=== PATIENT | male | born 1980 | race Two or more races ===

== ENCOUNTER 2024-09-04 16:20 | Emergency (ER) | payer SELFPAY ==
[2024-09-04 16:27] VITALS: BP 121/83; PULSE 83; RESP 16; TEMP 36.7; O2SAT 97; BMI 25.0
--- NOTE | 2024-09-04 16:35 | XR_ITS ---
Examination: CT brain head without contrast. 2-D sagittal coronal reconstructions Date and time of exam:September 04, 2024, 1654 hrs. Indications: Patient fell today, injury to the head, head pain CTDI: vol (mGy):47.5 DLP: (mGycm):978 Technique: Multiple CT axial sections of the brain have been obtained, 5 mm slice thickness. Contrast has not been administered. 2-D sagittal, coronal reconstructions have been obtained Low dose protocols were performed. One or more of the following dose reduction techniques were used; automated exposure control, adjustment of the mA and/or KV according to patient size, use of iterative reconstruction technique. Findings: No significant ventricular enlargement. Intra-axial or extra-axial hemorrhage density is not seen. No mass effect or midline shift Basal cisterns are not remarkable. Fourth ventricle is midline. Cranial vault intact. Impression: Negative for acute hemorrhage, mass effect or midline shift
--- NOTE | 2024-09-04 16:35 | XR_ITS ---
Examination: CT chest, without intravenous contrast. CT abdomen, without intravenous contrast. CT pelvis, without intravenous contrast. 2-D sagittal and coronal reconstructions. 3-D reconstructions. Date and time of exam:September 04, 2024 at 1658 hrs. Indications: Patient fell today with injury to the chest and abdomen, chest pain abdomen pain back pain CTDI vol (mgy) 6.61 DLP (MGycm)169 Technique: Multiple CT images, 3.0 mm slice thickness, obtained chest, abdomen, pelvis, with the high-resolution 64 slice scanner.. Sagittal and coronal 2-D reconstructions are obtained. 3-D reconstructions Low dose protocols were performed. One or more of the following dose reduction techniques were used; automated exposure control, adjustment of the mA and/or KV according to patient size, use of iterative reconstruction technique. Findings: Thoracic aorta pulmonary arteries intact. No hemopericardium No pneumothorax pulmonary contusion or hemothorax The manubrium, the body the sternum, thoracic vertebral bodies appear intact Ribs appear intact No liver splenic or renal laceration, no perinephric hematoma Aorta is intact Subcentimeter periaortic lymph nodes No free blood in the abdomen or pelvis Negative for pneumoperitoneum Absent appendix No bowel obstruction Urinary bladder intact with minimal urinary bladder wall thickening No significant prostatomegaly Iliac bones bones of the pelvis intact Impression: Thoracic aorta pulmonary arteries intact No hemopericardium, pneumothorax, pulmonary contusion or hemothorax No abdominal parenchymal laceration Abdominal aorta intact No free blood in the abdomen or pelvis Osseous structures including vertebral bodies appear intact
--- NOTE | 2024-09-04 16:35 | XR_ITS ---
Examination: CT cervical spine without contrast 2-D sagittal reconstructions 2-D coronal reconstructions 3-D reconstructions. Exam date and time:August 1654 hrs. Indications: Patient fell today with injury to the neck, neck pain CTDI:vol (mGy) 7.47 DLP: (mGycm) 157 Technique: Multiple 2 mm axial sections of the cervical spine have been obtained. The coronal and sagittal reconstructions have been obtained. 3-D reconstructions have been obtained. Low dose protocols were performed. One or more of the following dose reduction techniques were used; automated exposure control, adjustment of the mA and/or KV according to patient size, use of iterative reconstruction technique. Findings: Axial sections demonstrate intact base of the skull. C1 exhibit satisfactory relationship to the odontoid. No acute cervical vertebral body fracture seen. Alignment posterior spinous processes satisfactory. Impression: No acute cervical fracture.
--- NOTE | 2024-09-04 16:35 | PD.EDRME ---
Rapid Medical Screening Exam [facility] Arrival date/time: 09/04/24 16:20 44-year-old male with no known medical history presents to the emergency room with a chief complaint of headache, thoracic back pain, and neck pain x 2 hours. Patient states he was picking oranges and fell off a 10 foot ladder. He believes the fall was over 10 feet as he was on one of the final steps of the ladder when he fell. Patient states he fell backwards and hit his head and back while caring a sack of oranges. I have greeted and performed a focused initial assessment of this patient. A comprehensive ED assessment and evaluation of the patient, analysis of all test results, and completion of the medical decision making process will be conducted by additional ED providers. Chief Complaint: Fall Vital signs: Vital Signs Temperature 98.1 F 09/04/24 16:27 Pulse Rate 83 09/04/24 16:27 Respiratory Rate 16 09/04/24 16:27 Blood Pressure 121/83 09/04/24 16:27 Pulse Oximetry (%) 97 09/04/24 16:27 Oxygen Delivery Method Room Air 09/04/24 16:27 Vital signs reviewed by provider: Yes
--- NOTE | 2024-09-04 17:43 | PC.NURSE ---
MADE CONTACT WITH PATIENT AT THIS TIME. CERVICAL COLLAR APPLIED AT THIS TIME DUE TO HEAD AND NECK PAIN SECONDARY TO FALL FROM LATTER TODAY. ETRE ARIAS MADE AWARE.
--- NOTE | 2024-09-04 17:49 | XR_ITS ---
Examination: Bilateral hips, AP pelvis, 5 views Technique: AP, lateral views both hips, AP pelvis, 5 views Exam date and time: September 04, 2024 at 1717 hrs. Indications: Patient fell today with injury to both hips, bilateral hip pain. Findings: No right or left hip fracture or dislocation Bones of the pelvis intact Impression: No hip or pelvic fractures
--- NOTE | 2024-09-04 17:53 | XR_ITS ---
EXAMINATION: Ankle, left 3 views . Technique: Ankle AP, oblique, lateral 3 views Date and time of exam: September 04, 2024 at 1731 hrs. Indications: Injury to the ankle today, ankle pain. Findings: No acute fracture No dislocation No foreign body Impression: No acute fracture
--- NOTE | 2024-09-04 17:53 | XR_ITS ---
Examination: Tibia-Fibula, left , 2 views Technique: Tibia-fibula AP lateral 2 views Date and time of exam: September 04 at 1729 hrs. Indications: Injury to the leg today, lower leg pain. Findings: No acute fracture. No dislocation. No foreign body Impression: No acute fracture
--- NOTE | 2024-09-04 17:53 | XR_ITS ---
Examination: Knee, left , 3 views Technique: Knee AP, lateral, oblique 3 views Date and time of exam: September 04, 2024 1723 hrs. Indications: Injury to the knee today, left knee pain. Findings: No acute fracture. No dislocation. No foreign body Impression: No acute fracture
--- NOTE | 2024-09-04 17:53 | XR_ITS ---
Shoulder bilateral, 6 views Technique: Shoulder AP internal rotation, AP external rotation, Y view shoulder Exam date and time :September 04 at 1710 hrs. Indications: Patient fell today with injury to both shoulders, bilateral shoulder pain Findings: No shoulder fractures or shoulder dislocation No AC joint separation No foreign bodies Impression: Negative for shoulder fractures or shoulder dislocations
[2024-09-04] MEDS: ONDANSETRON ODT 4 MG TABRAP PO (18:01)
[2024-09-04] MEDS: HYDROcodone/APAP 5/325 TABLET 1 TAB PO ×3 (18:01→22:44)
--- NOTE | 2024-09-04 18:05 | XR_ITS ---
Examination: AP chest single view Technique: AP portable supine chest single view Exam date and time: September 04, 2024 at 2030 hrs. Indications: Patient fell off a ladder today with injury to the chest, chest pain Findings: Normal heart size. No pneumothorax. Clavicles bones of the shoulders and ribs appear intact Impression: No pneumothorax pulmonary contusion or hemothorax
[2024-09-04 18:17] VITALS: BP 121/81; PULSE 71; RESP 18; TEMP 36.9; O2SAT 98
[2024-09-04 18:49] LABS: Basophils % (Auto) 1 % (0-2.5); Eosinophils # (Auto) 0.3 Thou/mm3 (0.0-0.5); Eosinophils % (Auto) 4 % (0-10); Hematocrit 42.2 % (41.0-53.0); Hemoglobin 14.8 g/dL (13.5-16.0); Immature Granulocytes % (Auto) 0 % (0-0); Immature Granulocytes Auto 0.02 Thou/mm3 (0.00-0.00); Lymphocytes % (Auto) 26 % (10-50); Mean Corpuscular HGB Conc 35.1 g/dl (31.0-37.0); Mean Corpuscular Hemoglobin 31.6 pg (25.0-35.0); Mean Corpuscular Volume 90 fL (80-100); Monocytes # (Auto) 0.7 Thou/mm3 (0.0-0.8); Monocytes % (Auto) 9 % (0-12); Neutrophils # (Auto) 4.8 Thou/mm3 (1.8-7.7); Neutrophils % (Auto) 61 % (37-80); Nucleated Red Blood Cell % 0 /100 WBC (0); Platelet Count 255 Thou/mm3 (140-440); RDW Standard Deviation 39.9 fL (35.1-43.9); Red Blood Count 4.68 Miln/mm3 (4.50-5.90); White Blood Count 7.8 Thou/mm3 (3.8-10.6)
[2024-09-04 19:03] LABS: Prothrombin Time 10.9 Seconds (9.0-12.2)
[2024-09-04 19:20] LABS: Alanine Aminotransferase 37 U/L (10-49); Albumin, Serum 4.5 gm/dL (3.5-5.0); Albumin/Globulin Ratio 1.4 (1.2-2.2); Alkaline Phosphatase 85 U/L (46-116); Anion Gap 9 (7-16); Aspartate Amino Transferase 15 U/L (0-34); BUN/Creatinine Ratio 13 Ratio (12-20); Bilirubin,Total 0.4 mg/dL (0.3-1.2); Blood Urea Nitrogen 10 mg/dL (9-23); Calcium 9.6 mg/dL (8.3-10.6); Calcium (Corrected) 9.6 mg/dL (8.5-10.1); Carbon Dioxide 26.9 mMol/L (20.0-31.0); Chloride 104 mMol/L (98-107); Creatinine (Component) 0.8 mg/dL (0.6-1.3); Estimated Creatinine Clearance 104.1 mL/min (>60); Globulin 3.3 gm/dL (2.3-3.5); Glucose 91 mg/dL (74-106); Osmolality,Calculated 278 (275-295); Potassium 4.2 mMol/L (3.4-5.1); Sodium 140 mMol/L (136-145); Total Protein 7.8 gm/dL (5.7-8.2); eGFR > 60 See Note
--- NOTE | 2024-09-04 19:42 | PC.NURSE ---
TERE ARIAS AT BEDSIDE AND MADE AWARE OF PAIN OF 03/31. TERE NUNO ASSESSING PATIENT AT THIS TIME. AWAITING ADDITIONAL PAIN MEDICATION ORDERS.
[2024-09-04 20:50] VITALS: BP 119/82; PULSE 67; RESP 17; TEMP 36.9; O2SAT 99
--- NOTE | 2024-09-04 22:06 | PD.EDFALL ---
ED Fall Injury RME/HPI General Chief Complaint: Fall Stated Complaint: BACK AND HEAD PAIN S/P FALL FROM LADDER Time Seen by Provider: 09/04/24 17:13 Arrival date/time: 09/04/24 16:20 44-year-old male with no known medical history presents to the emergency room with a chief complaint of headache, thoracic back pain, and neck pain x 2 hours. Patient states he was picking oranges and fell off an approx 10 foot ladder. He believes the fall was over 10 feet as he was on one of the final steps of the ladder when he fell. Patient states he fell backwards and hit his head and back while caring a sack of oranges. Patient has injury to his left knee left ankle bilateral shoulders, head, neck, upper and lower back. Patient states he felt like he passed out but he immediately woke up. Patient states this happened very brief. RME / HPI RME / HPI Narrative: 09/04/24 16:20 44-year-old male with no known medical history presents to the emergency room with a chief complaint of headache, thoracic back pain, and neck pain x 2 hours. Patient states he was picking oranges and fell off a 10 foot ladder. He believes the fall was over 10 feet as he was on one of the final steps of the ladder when he fell. Patient states he fell backwards and hit his head and back while caring a sack of oranges. I have greeted and performed a focused initial assessment of this patient. A comprehensive ED assessment and evaluation of the patient, analysis of all test results, and completion of the medical decision making process will be conducted by additional ED providers. Related Data Previous Rx's ?Medication ?Instructions ?Recorded levofloxacin 750 mg tablet 750 mg PO Q24H #5 tabs 02/19/20 (Levaquin) hydrocodone 5 mg-acetaminophen 325 1 tab PO Q6H PRN pain #20 tabs 09/04/24 mg tablet ibuprofen 800 mg tablet 800 mg PO Q6H PRN pain #20 tabs 09/04/24 Allergies Allergy/AdvReac Type Severity Reaction Status Date / Time No Known Allergies Allergy Verified 09/04/24 16:24 Course Orders Category Date Time Status CT cervical spine wo con Stat Exams 09/04/24 16:[address] chest abdomen pelvis wo Stat Exams 09/04/24 16:[address] head/brain wo con Stat Exams 09/04/24 16:35 Completed XR ankle comp LT min 3V Stat Exams 09/04/24 17:53 Completed XR chest 1V portable Stat Exams 09/04/24 18:05 Completed XR hip BI w pelvis 3-4V Stat Exams 09/04/24 17:49 Completed XR knee LT 3V Stat Exams 09/04/24 17:53 Completed XR shoulder BI min 2V Stat Exams 09/04/24 17:53 Completed XR tibia fibula LT 2V Stat Exams 09/04/24 17:53 Completed CBC Stat Lab 09/04/24 18:44 Completed Comprehensive Metabolic Panel Stat Lab 09/04/24 18:44 Completed PT [Prothrombin Time with INR] Stat Lab 09/04/24 18:44 Completed HYDROcodone*/APAP 5/325 [[place] 5/325] Med 09/04/24 17:54 Discontinued 1 tab PO X1 ONE HYDROcodone*/APAP 5/325 [[place] 5/325] Med 09/04/24 19:49 Discontinued 1 tab PO X1 ONE HYDROcodone*/APAP 5/325 [[place] 5/325] Med 09/04/24 22:36 Once 1 tab PO X1 ONE Ibuprofen Tab [Motrin Tab] Med 09/04/24 22:36 Once 800 mg PO X1 ONE Ondansetron Odt [Zofran Odt] Med 09/04/24 17:54 Discontinued 4 mg PO X1 ONE Vital Signs Vital signs: Vital Signs Temperature 98.1 F 09/04/24 16:27 Pulse Rate 83 09/04/24 16:27 Respiratory Rate 16 09/04/24 16:27 Blood Pressure 121/83 09/04/24 16:27 Pulse Oximetry (%) 97 09/04/24 16:27 Oxygen Delivery Method Room Air 09/04/24 16:27 Fall MDM Narrative MDM Narrative:: cervical ct: Findings: Axial sections demonstrate intact base of the skull. C1 exhibit satisfactory relationship to the odontoid. No acute cervical vertebral body fracture seen. Alignment posterior spinous processes satisfactory. Impression: No acute cervical fracture. ct chest abdomen and pelvis: Findings: Thoracic aorta pulmonary arteries intact. No hemopericardium No pneumothorax pulmonary contusion or hemothorax The manubrium, the body the sternum, thoracic vertebral bodies appear intact Ribs appear intact No liver splenic or renal laceration, no perinephric hematoma Aorta is intact Subcentimeter periaortic lymph nodes No free blood in the abdomen or pelvis Negative for pneumoperitoneum Absent appendix No bowel obstruction Urinary bladder intact with minimal urinary bladder wall thickening No significant prostatomegaly Iliac bones bones of the pelvis intact Impression: Thoracic aorta pulmonary arteries intact No hemopericardium, pneumothorax, pulmonary contusion or hemothorax No abdominal parenchymal laceration Abdominal aorta intact No free blood in the abdomen or pelvis Osseous structures including vertebral bodies appear intact CT head: Findings: No significant ventricular enlargement. Intra-axial or extra-axial hemorrhage density is not seen. No mass effect or midline shift Basal cisterns are not remarkable. Fourth ventricle is midline. Cranial vault intact. Impression: Negative for acute hemorrhage, mass effect or midline shift HIp x ray: Findings: No right or left hip fracture or dislocation Bones of the pelvis intact Impression: No hip or pelvic fractures ankle x ray: Findings: No acute fracture No dislocation No foreign body Impression: No acute fracture Left ankle: Findings: No acute fracture. No dislocation. No foreign body Impression: No acute fracture shoulder x ray: Findings: No shoulder fractures or shoulder dislocation No AC joint separation No foreign bodies Impression: Negative for shoulder fractures or shoulder dislocations tib/fib left side: Findings: No acute fracture. No dislocation. No foreign body Impression: No acute fracture Chest x ray: Findings: Normal heart size. No pneumothorax. Clavicles bones of the shoulders and ribs appear intact Impression: No pneumothorax pulmonary contusion or hemothorax I discussed patient's results at length with him. I told him he would have to follow-up with Worker's Comp. doctor make an appointment. I will send him home with some [place] and some ibuprofen. Patient told to follow-up with primary provider in 1 to 2 days. Come back to the emergency room if symptoms change or worsen. Medications / Prescriptions Medication administrations:: Medication Administration History Discontinued Medications Hydrocodone Bitart/Acetaminophen (Hydrocodone/Apap 5/325 Tablet) 1 tab PO X1 ONE Stop: 09/04/24 17:55 Last Admin: 09/04/24 18:01 Dose: 1 tab Documented By: DIANNA Hydrocodone Bitart/Acetaminophen (Hydrocodone/Apap 5/325 Tablet) 1 tab PO X1 ONE Stop: 09/04/24 19:50 Last Admin: 09/04/24 19:59 Dose: 1 tab Documented By: DIANNA Ondansetron HCl (Ondansetron Odt 4 Mg Tabrap) 4 mg PO X1 ONE; Protocol Stop: 09/04/24 17:55 Last Admin: 09/04/24 18:01 Dose: 4 mg Documented By: Discharge Plan Plan Patient Disposition: HOME (Self Care) Patient condition on transfer: Stable Prescriptions/Referrals Prescriptions/Med Rec: New hydrocodone-acetaminophen 5-325 mg tablet 1 tab PO Q6H MDD 4 PRN (Reason: pain) Qty: 20 0RF ibuprofen 800 mg tablet 800 mg PO Q6H PRN (Reason: pain) Qty: 20 0RF No Action levofloxacin [Levaquin] 750 mg tablet 750 mg PO Q24H Qty: 5 0RF Referrals: No Primary/Family,Physician [Primary Care Provider] - In 1 week Problem List Clinical Impression: Contusion of neck, Contusion of head, Fall, Lower extremity pain, left Patient/Caregiver Discharge Instructions Discharge Activity: activity as tolerated Education Materials: Bruises (Contusions), ED RICE Additional Instructions: Please call and make an appointment with primary provider tomorrow. Will need to follow-up with Worker's Comp. doctor. These are the results of his scans. cervical ct: Findings: Axial sections demonstrate intact base of the skull. C1 exhibit satisfactory relationship to the odontoid. No acute cervical vertebral body fracture seen. Alignment posterior spinous processes satisfactory. Impression: No acute cervical fracture. ct chest abdomen and pelvis: Findings: Thoracic aorta pulmonary arteries intact. No hemopericardium No pneumothorax pulmonary contusion or hemothorax The manubrium, the body the sternum, thoracic vertebral bodies appear intact Ribs appear intact No liver splenic or renal laceration, no perinephric hematoma Aorta is intact Subcentimeter periaortic lymph nodes No free blood in the abdomen or pelvis Negative for pneumoperitoneum Absent appendix No bowel obstruction Urinary bladder intact with minimal urinary bladder wall thickening No significant prostatomegaly Iliac bones bones of the pelvis intact Impression: Thoracic aorta pulmonary arteries intact No hemopericardium, pneumothorax, pulmonary contusion or hemothorax No abdominal parenchymal laceration Abdominal aorta intact No free blood in the abdomen or pelvis Osseous structures including vertebral bodies appear intact CT head: Findings: No significant ventricular enlargement. Intra-axial or extra-axial hemorrhage density is not seen. No mass effect or midline shift Basal cisterns are not remarkable. Fourth ventricle is midline. Cranial vault intact. Impression: Negative for acute hemorrhage, mass effect or midline shift HIp x ray: Findings: No right or left hip fracture or dislocation Bones of the pelvis intact Impression: No hip or pelvic fractures ankle x ray: Findings: No acute fracture No dislocation No foreign body Impression: No acute fracture Left ankle: Findings: No acute fracture. No dislocation. No foreign body Impression: No acute fracture shoulder x ray: Findings: No shoulder fractures or shoulder dislocation No AC joint separation No foreign bodies Impression: Negative for shoulder fractures or shoulder dislocations tib/fib left side: Findings: No acute fracture. No dislocation. No foreign body Impression: No acute fracture Chest x ray: Findings: Normal heart size. No pneumothorax. Clavicles bones of the shoulders and ribs appear intact Impression: No pneumothorax pulmonary contusion or hemothorax Print Language: [place] Stand Alone Forms: Kassidy Award Info., Patient Portal Info Letter PA/HEAD MECHANIC Supervising Physician PA/HEAD MECHANIC Supervising Physician: Bryan
[2024-09-04] MEDS: IBUPROFEN TAB 400 MG TABLET 800 MG PO (22:44)
== END 2024-09-04 22:52 | disposition home or self-care (01) ==
PROVIDERS: Nurse Practitioner Family; Emergency Provider Emergency Medicine
DX: S00.93XA Contusion of unspecified part of head, initial encounter (principal); S10.93XA Contusion of unspecified part of neck, initial encounter; W11.XXXA Fall on and from ladder, initial encounter; M79.606 Pain in leg, unspecified; M54.6 Pain in thoracic spine
CPT/HCPCS: 36415; 70450; 71045; 71250; 72125; 73030; 73522; 73562; 73590; 73610; 74176; 80053; 85025; 85610; 99284; Q0162; A9270